=== PATIENT | male | born 1990 | race African-American/Black ===

== ENCOUNTER 2016-05-10 09:42 | Emergency (ER) | payer SELFPAY ==
[2016-05-10 09:52] VITALS: RESP 16; TEMP 99
--- NOTE | 2016-05-10 10:10 | EDPHY ---
H & P Time Seen by Provider: 05/10/16 10:07 HPI/ROS: HPI: 25-year-old male presents to emergency department brought in by EMS having called 911 with chief concern afraid to be alone. After eating food, he became very anxious and made himself vomit. He became nervous to be alone. He denies fever, chills, URI symptoms, shortness of breath, chest pain, abdominal pain, diarrhea. He denies suicidal homicidal ideation he denies auditory hallucination. Reports flickering lights, bubbling glossy" appearance in his vision that has been ongoing since 2013. Denies drug or alcohol use other than occasional marijuana. Reports significant history of cocaine, meth, ecstasy use prior to 2013. Has a history that includes bipolar, major depressive disorder, borderline personality disorder however he has not been medicated since 2013 when he was kicked out of the for drug use. Has a history of anorexia and bulimia. ROS:10 point review of systems is negative other than as stated in HPI Smoking Status: Never smoked Physical Exam: Vital signs stable, reviewed by me General: Awake, alert, calm, cooperative. No acute distress. Head: Normalocephalic. Atraumatic. EENT: PERRLA. EOMI. No pallor or injection. Anicteric. No nystagmus. No injection. TMs intact bilaterally with normal landmarks. No rhinnorhea, nasal passages clear. Oropharynx without redness, exudates, or lesions. Tonsils 2+ bilaterally, no exudates. Neck: Supple, nontender. No lymphadenopathy. Full range of motion. No meningismus. Respiratory: Breathing unlabored. Breath sounds equal bilaterally and clear to auscultation. No adventitious sounds. CV: Chest nontender, atraumatic. Heart rate regular. No murmur, distal pulses 2+ bilaterally. Brisk cap refill all extremities. GI: Abdomen soft, nontender. Bowel sounds normoactive and positive x4 quadrants. Neuro: Alert. Oriented x 3. Speech clear. Nonfocal cranial nerves throughout. Sensation intact all extremities. Skin: Skin warm, dry, intact. No rashes, abrasions, or lacerations. No track campos visible. Skin turgor normal. Extremities: Full range of motion in all 4 extremities. Strength 5+ all extremities. Constitutional: Initial Vital Signs Temperature (C) 37.2 C 05/10/16 09:48 Heart Rate 88 05/10/16 09:48 Respiratory Rate 16 05/10/16 09:48 Blood Pressure 134/82 H 05/10/16 09:48 O2 Sat (%) 93 05/10/16 09:48 O2 Delivery Mode Room Air Allergies/Adverse Reactions: No Known Allergies Allergy (Unverified 05/10/16 09:52) Medical Decision Making ED Course/Re-evaluation: 25-year-old male called 911 and presents to emergency department via EMS with chief concern anxiety around eating food. He has a history of anorexia and bulimia. Presently there are no suicidal or homicidal ideation. He is not hallucinating. He is calm and appropriate. He wishes to speak to a counselor. He is stable for discharge and will be given a cab voucher to [facility]. At this time there is no recent told him in the emergency department for mental health evaluation. He is comfortable with and agrees to this plan. Differential Diagnosis: Differential includes but is not limited to functional and major depression, situational depression, medication side-effect, anxiety, schizophrenia, bipolar , drug or alcohol related, acute psychosis, metabolic derangement, infection Departure - Departure Disposition: Home, Routine, Self-Care Clinical Impression: Anxiety Condition: Good Instructions: Anxiety (ED) Additional Instructions: Plan: Go directly to [facility] directly Get established, and follow up at [facility] thereafter Referrals: Patient,NotPresent [Unknown] - As per Instructions [facility] [Outside] - As per Instructions
[2016-05-10 10:24] VITALS: BP 133/80; PULSE 84; O2SAT 94
== END 2016-05-10 10:45 | disposition home or self-care (01) ==
DX: F41.9 Anxiety disorder, unspecified (principal)